=== PATIENT | female | born 2005 | race Caucasian/White ===

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

== ENCOUNTER 2024-01-17 18:48 | Emergency (ER) | payer OTHER ==
[2024-01-17 18:57] VITALS: BP 115/72; PULSE 115; RESP 18; TEMP 98; BMI 22.4
[2024-01-17] MEDS ORDERED: IBUPROFEN 600 MG TABLET (FP) PO ONE (20:16)
[2024-01-17] MEDS: IBUPROFEN 600 MG TABLET (FP) PO ONE (20:18)
== END 2024-01-17 20:59 | disposition home or self-care (01) ==
LOC: JER 18:48
DX: S61.304A Unspecified open wound of right ring finger with damage to nail, initial encounter (principal); M25.552 Pain in left hip; M25.561 Pain in right knee; Y04.8XXA Assault by other bodily force, initial encounter; Y92.009 Unspecified place in unspecified non-institutional (private) residence as the place of occurrence of the external cause
CPT/HCPCS: 99283-25